=== PATIENT | female | born 1990 | race Caucasian/White ===

== ENCOUNTER 2016-07-14 17:57 | Outpatient (CLI) | payer OTHER | END 2016-07-14 19:59 | disposition home or self-care (01) | LOC: GENOP 17:57 | PROVIDERS: Obstetrics & Gynecology | DX: O26.893 Other specified pregnancy related conditions, third trimester (principal); O42.913 Preterm premature rupture of membranes, unspecified as to length of time between rupture and onset of labor, third trimester; R10.9 Unspecified abdominal pain; Z3A.35 35 weeks gestation of pregnancy | CPT/HCPCS: 80307; 81001; 83518; G0463 ==

== ENCOUNTER 2016-08-20 05:39 | Inpatient (IN) | payer OTHER ==
[~2016-08-20] VITALS: Ht 170.2 cm; Wt 105.7 kg
[2016-08-20 07:30] LABS: RED BLOOD COUNT 4.42 M/UL (4.00-5.10); WHITE BLOOD COUNT 17.4 K/UL (4.5-11.0)
[2016-08-21 03:28] LABS: HEMOGLOBIN 10.9 gm/dl (12.3-15.3)
[2016-08-22] MEDS ORDERED: COLACE 100MG C100 MG PO (10:53)
== END 2016-08-22 14:15 | disposition home or self-care (01) | DRG 775 ==
LOC: GENOP 05:39 → OB 05:43
PROVIDERS: Obstetrics & Gynecology; ADMIT Obstetrics & Gynecology
PROC: 10E0XZZ Delivery of Products of Conception, External Approach (ICD-10-PCS; principal; 2016-08-20)
PROC: 3E0234Z Introduction of Serum, Toxoid and Vaccine into Muscle, Percutaneous Approach (ICD-10-PCS; 2016-08-21)
DX: O99.344 Other mental disorders complicating childbirth (principal); O69.81X0 Labor and delivery complicated by cord around neck, without compression, not applicable or unspecified; O77.0 Labor and delivery complicated by meconium in amniotic fluid; F32.9 Major depressive disorder, single episode, unspecified; F41.9 Anxiety disorder, unspecified; Z3A.40 40 weeks gestation of pregnancy; Z37.0 Single live birth; O99.334 Smoking (tobacco) complicating childbirth; F17.210 Nicotine dependence, cigarettes, uncomplicated; O75.89 Other specified complications of labor and delivery; J45.909 Unspecified asthma, uncomplicated; Z23 Encounter for immunization; Z82.49 Family history of ischemic heart disease and other diseases of the circulatory system
CPT/HCPCS: 82800; 85014; 85018; 85025; 90715; J2590; J3430